=== PATIENT | female | born 1995 | race Two or more races ===

== ENCOUNTER 2023-11-07 13:07 | Emergency (ER) | payer OTHER ==
[~2023-11-07] VITALS: Ht 154.9 cm; Wt 105.2 kg
[2023-11-07 14:27] LABS: HEMATOCRIT 36.6 % (36.0-45.00); HEMOGLOBIN 12.4 g/dL (12.0-15.00); MEAN CELL VOLUME 88.5 fL (80.00-100.00); MEAN CORPUSCULAR HGB CONC 33.9 g/dl (32.0-36.0); PLATELET COUNT 389 K/uL (150-450); RED BLOOD COUNT 4.14 M/uL (4.00-6.00); RED CELL DISTRIBUTION WIDTH 14.5 % (11.5-14.5)
[2023-11-07 14:59] LABS: URINE APPEARANCE Clear; URINE BILIRRUBIN Negative (NEGATIVE); URINE BLOOD Negative; URINE COLOR Yellow; URINE GLUCOSE Negative (NEGATIVE); URINE KETONE Negative (NEGATIVE); URINE LEUKOCYTE Negative; URINE NITRATE Negative; URINE PROTEIN Negative (NEGATIVE); URINE UROBILINOGEN 0.2 E.U./dl
[2023-11-07 15:03] LABS: URINE BACTERIA 37.7 uL (0.0-1933); URINE EPITHELIAL CELLS 1.8 uL (0.0-38.8); URINE WBC 3.3 uL (0.0-23.2)
[2023-11-07 15:16] LABS: CALCIUM 8.8 mg/dL (8.5-10.1); CREATININE SERUM 0.54 mg/dL (0.55-1.02); GFR 133.47; POTASSIUM 4.28 mEq/L (3.5-5.1)
== END 2023-11-07 16:57 | disposition home or self-care (01) ==
LOC: ER 13:08
PROVIDERS: General Practice
DX: O20.8 Other hemorrhage in early pregnancy (principal); Z3A.01 Less than 8 weeks gestation of pregnancy; N93.9 Abnormal uterine and vaginal bleeding, unspecified

== ENCOUNTER 2023-12-13 10:27 | Outpatient (CLI) | payer OTHER | END 2023-12-13 10:28 | disposition home or self-care (01) | LOC: PRENATAL 10:27 | PROVIDERS: ATTEND Obstetrics & Gynecology Maternal & Fetal Medicine | DX: O36.80X0 Pregnancy with inconclusive fetal viability, not applicable or unspecified (principal); Z36.82 Encounter for antenatal screening for nuchal translucency; Z3A.11 11 weeks gestation of pregnancy ==

== ENCOUNTER 2024-02-11 08:16 | Outpatient (CLI) | payer OTHER | END 2024-02-11 08:17 | disposition home or self-care (01) | LOC: PRENATAL 08:16 | PROVIDERS: ATTEND Obstetrics & Gynecology Maternal & Fetal Medicine | DX: O35.3XX0 Maternal care for (suspected) damage to fetus from viral disease in mother, not applicable or unspecified (principal); O44.00 Complete placenta previa NOS or without hemorrhage, unspecified trimester; Z3A.20 20 weeks gestation of pregnancy ==

== ENCOUNTER → 2024-04-17 08:40 | Outpatient (CLI) | payer OTHER | END | disposition home or self-care (01) | LOC: PRENATAL 08:40 | PROVIDERS: ATTEND Obstetrics & Gynecology Maternal & Fetal Medicine | DX: O26.849 Uterine size-date discrepancy, unspecified trimester (principal); O99.210 Obesity complicating pregnancy, unspecified trimester; O99.019 Anemia complicating pregnancy, unspecified trimester; Z3A.30 30 weeks gestation of pregnancy ==

== ENCOUNTER 2024-05-16 09:13 | Outpatient (CLI) | payer OTHER | END 2024-05-16 09:14 | disposition home or self-care (01) | LOC: PRENATAL 09:13 | PROVIDERS: ATTEND Obstetrics & Gynecology Maternal & Fetal Medicine | DX: O26.849 Uterine size-date discrepancy, unspecified trimester (principal); O36.8199 Decreased fetal movements, unspecified trimester, other fetus; O99.210 Obesity complicating pregnancy, unspecified trimester; Z3A.34 34 weeks gestation of pregnancy ==

== ENCOUNTER 2024-06-16 07:53 | Outpatient (CLI) | payer OTHER ==
[~2024-06-16] VITALS: Ht 154.9 cm; Wt 105.2 kg
[2024-06-16 07:24] VITALS: BP 103/64
[2024-06-16] MEDS ORDERED: RINGERS SOLUTION,LACTATED 1,000 ML IV SCH (08:00)
[2024-06-16 08:28] LABS: HEMATOCRIT 35.1 % (36.0-45.00); HEMOGLOBIN 12.2 g/dL (12.0-15.00); MEAN CELL VOLUME 94.8 fL (80.00-100.00); MEAN CORPUSCULAR HEMOGLOBIN 33.1 pg (27.00-32.0); MEAN CORPUSCULAR HGB CONC 34.9 g/dl (32.0-36.0); PLATELET COUNT 280 K/uL (150-450); RED CELL DISTRIBUTION WIDTH 14.6 % (11.5-14.5); URINE APPEARANCE Clear; URINE BILIRRUBIN Negative (NEGATIVE); URINE BLOOD Negative; URINE COLOR Yellow; URINE EPITHELIAL CELLS 5.8 uL (0.0-38.8); URINE GLUCOSE Negative (NEGATIVE); URINE KETONE Negative (NEGATIVE); URINE LEUKOCYTE Negative; URINE NITRATE Negative; URINE PROTEIN Negative (NEGATIVE); URINE RBC 2.2 uL (0.0-20.8); URINE UROBILINOGEN 0.2 E.U./dl
[2024-06-16 08:37] LABS: URINE WBC 1.2 uL (0.0-23.2)
[2024-06-16] MEDS ORDERED: PRENATAL TABLE1 EAC1 PO (08:46)
[2024-06-16 09:44] LABS: CALCIUM 8.4 mg/dL (8.5-10.1); CREATININE SERUM 0.43 mg/dL (0.55-1.02); GFR 173.6; POTASSIUM 3.96 mEq/L (3.5-5.1)
[2024-06-16 10:02] VITALS: BP 103/64
== END 2024-06-16 10:18 | disposition home or self-care (01) ==
LOC: OBS/DEL 07:53
PROVIDERS: ATTEND Obstetrics & Gynecology
DX: O36.8130 Decreased fetal movements, third trimester, not applicable or unspecified (principal); O26.849 Uterine size-date discrepancy, unspecified trimester; O36.8199 Decreased fetal movements, unspecified trimester, other fetus; Z3A.37 37 weeks gestation of pregnancy

== ENCOUNTER 2024-06-26 05:24 | Inpatient (IN) | payer OTHER ==
[~2024-06-26] VITALS: Ht 154.9 cm; Wt 104.8 kg
[2024-06-26] VITALS (10 sets, daily range): BP systolic 102–127; BP diastolic 51–79
[~2024-06-26 05:24] MED LIST: PRENATAL TABLE1 EAC1 PO
[2024-06-26] MEDS ORDERED: FOLIC ACID20 MG PO (05:31)
[2024-06-26] MEDS ORDERED: RINGERS SOLUTION,LACTATED 1,000 ML IV SCH (05:45)
[2024-06-26 07:11] LABS: PH,URINE 6.5 (5.0-8.0); URINE APPEARANCE Clear; URINE BILIRRUBIN Negative (NEGATIVE); URINE COLOR Yellow; URINE GLUCOSE Negative (NEGATIVE); URINE KETONE Negative (NEGATIVE); URINE LEUKOCYTE Negative; URINE NITRATE Negative; URINE PROTEIN Trace (NEGATIVE); URINE UROBILINOGEN 0.2 E.U./dl
[2024-06-26 07:13] LABS: URINE BACTERIA 161.5 uL (0.0-1933); URINE EPITHELIAL CELLS 5.3 uL (0.0-38.8); URINE RBC 33.2 uL (0.0-20.8); URINE WBC 13.7 uL (0.0-23.2)
[2024-06-26 07:23] LABS: URINE BLOOD TRACES; URINE CAST 0.14 uL (0.0-1.40)
[2024-06-26 07:24] LABS: HEMATOCRIT 37.2 % (36.0-45.00); HEMOGLOBIN 13.1 g/dL (12.0-15.00); MEAN CELL VOLUME 94.9 fL (80.00-100.00); MEAN CORPUSCULAR HEMOGLOBIN 33.4 pg (27.00-32.0); MEAN CORPUSCULAR HGB CONC 35.2 g/dl (32.0-36.0); PLATELET COUNT 302 K/uL (150-450); RED BLOOD COUNT 3.92 M/uL (4.00-6.00); RED CELL DISTRIBUTION WIDTH 14.8 % (11.5-14.5)
[2024-06-26] MEDS ORDERED: AMPICILLIN SODIUM 2,000 MG VIAL IV STA (09:42)
[2024-06-26] MEDS ORDERED: OXYTOCIN 500 ML IV SCH (09:45)
[2024-06-26 11:24] LABS: INR < 0.93; PARTIAL THROMBOPLASTIN TIME 27.2 SECONDS (22.0-34.0); PROTHROMBIN TIME 10.1 SECONDS (9.0-11.5)
[2024-06-26 12:12] LABS: ALBUMIN 2.7 gm/dL (3.4-5.0); BILIRUBIN TOTAL 0.47 mg/dL (0.3-1.2); CALCIUM 8.9 mg/dL (8.5-10.1); CREATININE SERUM 0.46 mg/dL (0.55-1.02); GFR 160.6; GLOBULINA 4.1 G/DL (2.4-3.5); POTASSIUM 4.23 mEq/L (3.5-5.1); TOTAL PROTEIN 6.8 gm/dL (6.4-8.2)
[2024-06-26] MEDS ORDERED: AMPICILLIN SODIUM 1,000 MG VIAL IV SCH (13:00)
[2024-06-26] MEDS ORDERED: MORPHINE SULFATE 4 MG/ML CARTRIDGE IV ONE (15:45)
[2024-06-26] MEDS ORDERED: CHLORHEXIDINE GLUCONATE 120 ML BOTTLE TOP ONE (16:43)
[2024-06-26] MEDS ORDERED: OXYTOCIN 20 UNITS/1000ML RL PIGGYBAG IV ONE (16:43)
[2024-06-26] MEDS ORDERED: ERYTHROMYCIN BASE OPHT 1GM EACH TUBE OP ONE ×2 (16:43→19:45)
[2024-06-26] MEDS ORDERED: LIDOCAINE HCL 1% 10ML VIAL ONE (16:43)
[2024-06-26] MEDS ORDERED: OXYTOCIN 10 UNITS/ML VIAL ONE (16:44)
[2024-06-26] MEDS ORDERED: IBUprofen 400 MG TABLET PO PRN (19:30)
[2024-06-26] MEDS ORDERED: CHLORHEXIDINE GLUCONATE 120 ML BOTTLE TOP SCH (19:45)
[2024-06-26] MEDS ORDERED: OXYTOCIN 1,000 ML IV SCH (19:45)
[2024-06-26] MEDS ORDERED: OXYTOCIN 10 UNITS/ML VIAL IM STA (19:45)
[2024-06-26] MEDS ORDERED: LIDOCAINE HCL 1% 10ML VIAL IJ ONE (19:45)
[2024-06-26] MEDS ORDERED: DOCUSATE SODIUM 100MG CAP PO SCH (20:03)
[2024-06-27 01:43] VITALS: BP 126/58
[2024-06-27 02:56] LABS: HEMATOCRIT 35.9 % (36.0-45.00); HEMOGLOBIN 12.2 g/dL (12.0-15.00); MEAN CELL VOLUME 95.5 fL (80.00-100.00); MEAN CORPUSCULAR HEMOGLOBIN 32.4 pg (27.00-32.0); MEAN CORPUSCULAR HGB CONC 33.9 g/dl (32.0-36.0); PLATELET COUNT 284 K/uL (150-450); RED BLOOD COUNT 3.76 M/uL (4.00-6.00); RED CELL DISTRIBUTION WIDTH 14.5 % (11.5-14.5)
[2024-06-27 07:59] VITALS: BP 100/67
[2024-06-27 16:00] VITALS: BP 112/73
[2024-06-28 00:15] VITALS: BP 110/71
[2024-06-28 07:36] VITALS: BP 109/68
== END 2024-06-28 14:01 | disposition home or self-care (01) | DRG 807 ==
LOC: OBS/DEL 05:24 → LDR 09:26 → OBS/DEL 09:26 → OB/GYN 19:36
PROVIDERS: ADMIT Obstetrics & Gynecology; ATTEND Obstetrics & Gynecology
PROC: 10E0XZZ Delivery of Products of Conception, External Approach (ICD-10-PCS; principal; 2024-06-26)
PROC: 4A1HXCZ Monitoring of Products of Conception, Cardiac Rate, External Approach (ICD-10-PCS; 2024-06-26)
DX: O80 Encounter for full-term uncomplicated delivery (principal); Z37.0 Single live birth; Z3A.40 40 weeks gestation of pregnancy